=== PATIENT | female | born 1990 | race Caucasian/White ===

== ENCOUNTER 2016-07-23 14:07 | Inpatient (IN) | payer BC ==
[~2016-07-23] VITALS: Ht 175.3 cm; Wt 88.5 kg
--- NOTE | 2016-07-23 14:15 | NUR ---
PT BIB RA S/P OD ON 20 EACH OF KLONOPIN, ATIVAN, AND EXCEDRIN TODAY WITH SUICIDAL INTENT. RESP EVEN UNLABORED. SKIN WARM NONDIAPHORETIC. NO NEURO DEFICITS NOTED. A/OX4. VSS. IN ER BED 10 ON MONITOR.
--- NOTE | 2016-07-23 14:45 | NUR ---
ASKED NURSING COCOA BEAN ROASTER HELPER FOR TELEMETRY BED
[2016-07-23 14:54] LABS: BASOPHILS % (AUTO) 0.6 % (0.0-2.0); EOSINOPHILS # (AUTO) 0.1 /CMM (0.0-0.7); EOSINOPHILS % (AUTO) 1.4 % (0.0-6.0); HEMATOCRIT 36 % (33-45); HEMOGLOBIN 11.4 g/dL (11.5-14.8); LYMPHOCYTES # (AUTO) 1.4 /CMM (0.8-4.8); LYMPHOCYTES % (AUTO) 22.9 % (20.0-44.0); MEAN CORPUSCULAR HEMOGLOBIN 22 PG (26.0-33.0); MEAN CORPUSCULAR HGB CONC 32 g/dl (31.0-36.0); MEAN CORPUSCULAR VOLUME 70 fL (82-100); MONOCYTES # (AUTO) 0.6 /CMM (0.1-1.30); MONOCYTES % (AUTO) 9.2 % (2.0-12.0); NEUTROPHILS # (AUTO) 4.1 /CMM (1.8-8.9); NEUTROPHILS % (AUTO) 65.9 % (43.0-81.0); PLATELET COUNT (AUTO) 392 /CMM (150-450); RDW COEFFICIENT OF VARIATION 17.3 (11.5-15.0); RED BLOOD CELL COUNT(AUTO) 5.09 MIL/uL (4.0-5.2); WHITE BLOOD COUNT (AUTO) 6.2 K/uL (4.3-11.0)
--- NOTE | 2016-07-23 14:54 | NUR ---
UNABLE TO OBTAIN IV ACCESS AFTER MULTIPLE ATTEMPTS. NASH AT BEDSIDE FOR IV ACCESS.
[2016-07-23 15:09] LABS: CALCIUM, SERUM 8.8 mg/dL (8.5-10.1); CARBON DIOXIDE 27 mmol/L (21-32); CHLORIDE 107 mmol/L (98-107); CREATININE 0.6 mg/dL (0.6-1.3); GLUCOSE 77 mg/dL (74-106); SODIUM SERUM 143 mmol/L (136-145); UREA NITROGEN, BLOOD 11 mg/dL (7-18)
[2016-07-23 15:13] LABS: ACETAMINOPHEN 0 ug/ml (10-30); ALANINE AMINOTRANSFERASE 17 U/L (12-78); ALBUMIN 3.3 g/dL (3.4-5.0); ALCOHOL, BLOOD < 3 mg/dL (0-0); ALKALINE PHOSPHATASE 57 U/L (46-116); ASPARTATE AMINOTRANSFERASE 10 U/L (15-37); BILIRUBIN,DIRECT 0.1 mg/dL (0.0-0.2); BILIRUBIN,TOTAL 0.2 mg/dL (0.2-1.0); SALICYLATE 1.2 mg/dL (2.8-20.0); TOTAL PROTEIN, SERUM 6.9 g/dL (6.4-8.2)
[2016-07-23] MEDS ORDERED: ARIP15TA2 PO (15:19)
[2016-07-23] MEDS ORDERED: BUSP10TA35 PO (15:19)
[2016-07-23] MEDS ORDERED: ZOLP10TA6 PO (15:19)
[2016-07-23] MEDS ORDERED: CLON1TAB4 PO (15:19)
[2016-07-23] MEDS ORDERED: DESV50TA PO (15:19)
[2016-07-23] MEDS ORDERED: AMPH30CA3 PO (15:19)
[2016-07-23] MEDS ORDERED: LORA0.5T PO (15:19)
[2016-07-23] MEDS ORDERED: DILT30TA2 PO (15:19)
[2016-07-23] MEDS ORDERED: AMPH30TA3 PO (15:19)
--- NOTE | 2016-07-23 15:41 | NUR ---
PAGED DR ALONSO CRIMINAL JUSTICE INSTRUCTOR FOR PANEL
--- NOTE | 2016-07-23 15:59 | NUR ---
ADMITTING DR GAVIN IZAGUIRRE AT BEDSIDE
--- NOTE | 2016-07-23 16:23 | NUR ---
RESTING QUIETLY, NAD NOTED. REMAINS ALERT AND ORIENTED, NO NEURO DEFICITS. ALL NEEDS ATTENDED TO.
[2016-07-23] MEDS ORDERED: IV NS 0.9% 1,000 ML IV PRN (16:26)
[2016-07-23] MEDS ORDERED: ACETAMINOPHEN 325 MG TABLET PO PRN (16:30)
[2016-07-23] MEDS ORDERED: HYDROCODONE/APAP 5/325MG 1 EACH TABLET PO PRN (16:30)
[2016-07-23] MEDS ORDERED: ZOLPIDEM TARTRATE 5 MG TABLET PO PRN (16:30)
[2016-07-23] MEDS ORDERED: MAGNESIUM HYDROXIDE 30 ML UDC PO PRN (16:30)
[2016-07-23] MEDS ORDERED: Z GUARD REMEDY 2 OZ OINT TP PRN (16:30)
[2016-07-23] MEDS ORDERED: MAG HYDROX/AL HYDROX/SIMETH 30 ML UDC PO PRN (16:30)
[2016-07-23] MEDS ORDERED: ONDANSETRON HCL/PF 4 MG/2 ML VIAL IVP PRN (16:30)
--- NOTE | 2016-07-23 16:35 | NUR ---
318-1 TELE, PATIENT CANNOT GO UP UNTIL SITTER IS SENT DOWNSTAIRS PER NURSING MACERATOR OPERATOR
--- NOTE | 2016-07-23 16:42 | NUR ---
REPORT GIVEN TO CASHIER ASSISTANT FOR ADMISSION. PT STATES SHE CANNOT PROVIDE A URINE SAMPLE AT THIS TIME
--- NOTE | 2016-07-23 17:37 | NUR ---
PT CONTINUES TO REFUSE URINE SAMPLE. 1:1 SITTER NOW AT BEDSIDE.
--- NOTE | 2016-07-23 17:40 | NUR ---
OK PER MD TO ENDORSE URINE SAMPLE TO FLOOR
--- NOTE | 2016-07-23 17:59 | NUR ---
PT TRANSPORTED TO [facility] IN STABLE CONDITION. VSS.
--- NOTE | 2016-07-23 18:03 | NUR ---
RETAIL SALES MANAGER NOTES RECEIVED PT. FROM ER NURSE IN STABLE CONDITION. PT. IS REQUESTING TO BE IN A ROOM BY HERSELF OR SHE WILL LEAVE AMA. JERRY THE CHARGE NURSE WAS MADE AWARE. DR. ALONSO WAS CALLED AND STATES "PT. CAN NOT LEAVE WITHOUT A CRISIS EVALUATION". HAYLEE CALLED THE CRISIS TEAM AND STATES THAT THEY WILL COME AND ASSESS PT. WILL AWAIT FOR FURTHER ORDERS FROM THE MD
[2016-07-23] MEDS ORDERED: IV SET PRIMARY PUMP SET 1 EA INFUS.SET MC ONE (18:05)
--- NOTE | 2016-07-23 18:15 | NUR ---
DEPUTY GENERAL COUNSEL NOTES PT. IS AGREEING TO HOSPITALIZATION AT THIS TIME. WILL BEGIN ADMISSION PROCESS.
[2016-07-23] MEDS: PANTOPRAZOLE 40 MG VIAL IV SCH (18:32)
--- NOTE | 2016-07-23 19:25 | NUR ---
TELE/CELLULAR TOWER CLIMBER; RECEIVED PT IN BED AWAKE, ALERT AND ORIENTED X 4. PT WITH CRUSHER AND BINDER OPERATOR ON. WITH IVF OF NS AT 75 ML / HOUR ON PROGRESS. IV LINE ON LT HAND PATENT AND INTACT. BED ON LOWER POSITION AND LOCKED FOR SAFETY. UPPER PART OF BED SIDE ARE UP FOR SAFETY. PT ON HER OWN CLOTHES AND REFUSED TO WEAR HOSPITAL GOWN. DENIES PAIN. WITH SITTER AT THE BED SIDE FROM DAY SHIT AT THIS TIME. PER DAY SHIFT RN PT HAS TO BE ADMITTED . SHE CAME FROM ER VIA GURNEY AT 1800 HOURS. PT SAID I AM COLD WITH BLANKETS ON. I TOLD THE PT I WILL ADJUST THE ROOM THERMOSTAT, DONE. PT ASKING FOR HOT DINNER. I OFFERED SANDWICH BUT REFUSED AND SAID I ATE SANDWICH ALREADY. SHE SAID FURTHER I NEED HOT SANDEEP/ DINNER.
--- NOTE | 2016-07-23 19:30 | NUR ---
TELE/LEADERSHIP DEVELOPMENT MANAGER; I PLACED A CALL TO THE KITCHEN AND SPOKE TO A MALE KITCHEN STAFF ABOUT DIET , PT NEEDS HOT FOOD FOR DINNER. HE CAME BROUGHT TUNA SANDWICH. PT REFUSED THE SANDWICH.
--- NOTE | 2016-07-23 19:43 | NUR ---
MOTORCYCLE ASSEMBLER CLOSING NOTES PT. IN STABLE CONDITION. ALL NEEDS MET AND ORDERS CARRIED OUT ACCORDINGLY. WILL ENDORSE TO NIGHTSHIFT NURSE FOR EDISON AND COMPLETION OF ADMISSION PROCESS
--- NOTE | 2016-07-23 19:45 | NUR ---
TELE/MARKETING SYSTEMS MANAGER; I INFORMED AYAAN EDWARDS BOTH CN AND TH NEWS ANALYST INNA REGARDING PT DEMAND OF HOT FOOD AND PT SAID SHE GO HOME IF SHE DOES NOT GET THE HOT FOOD. ALSO PT DEMANDS FOR AMBIEN.
--- NOTE | 2016-07-23 19:45 | NUR ---
TELE/LEAD FABRICATOR; CORRECTION PT WAS EVALUATED BY INNA , CRISIS TEAM ; NOT FRAME ASSEMBLER.
--- NOTE | 2016-07-23 19:50 | NUR ---
TELE/ATHLETIC COACH; LUIS EDUARDO KEITH TALKED TO THE CN , JERRY AND AYAAN REGARDING THE PT. THE INNA HOFF SAID PT IS NOT ON HOLD AT THIS TIME. AND THEN LATER LUIS EDUARDO KEITH SAID SHE WILL PUT PT ON HOLD. LUIS EDUARDO KEITH TAALKED TO THE PT.
--- NOTE | 2016-07-23 19:55 | NUR ---
TELE/SENIOR GRADUATE ADVISOR; PT TOLD ME SHE TAKES AMBIEN 10 MG AT NIGHT AT HOME . SHE DOES NOT WANT AMBIEN 5 MG.
--- NOTE | 2016-07-23 20:00 | NUR ---
TELE/DELIVERER PHARMACY; PT ON SR 86 AT THIS TIME.
--- NOTE | 2016-07-23 20:10 | NUR ---
TELE/MARKETING DATABASE COORDINATOR; I PLACED A CALL TO DR. Ania SALGADO REGARDING PT REQUEST FOR AMBIEN 10 MG NOT 5 MG . AWAITING.
--- NOTE | 2016-07-23 20:15 | NUR ---
TELE/ROAD FREIGHT BRAKE COUPLER; DR. Ania SALGADO CALLED BACK AND I NOTIFIED HIM REGARDING PT CONDITION AND WANTS AMBIEN [address] Ania SALGADO WITH ORDER OF AMBIEN 10 MG PO HS PRN. CARRIED OUT. AND CHARGE NURSE AYAAN INFORMED.
--- NOTE | 2016-07-23 20:20 | NUR ---
TELE/WIRE BRUSH OPERATOR; NOTED PT. REMOVED HER IV AND TELEMETRY. HE WANTS TO GO HOME . SHE SAID FURTHER NO ONE WILL TAKE CARE OF MY DOG AND I AM FINE. I NOTIFIED STEFANI KUO . PT IS ALREADY ON HOLD. PAGED THE SECURITY AND THE CAME AND DID TRIED TO EXPLAIN TO THE PT. PT STILL INSIST TO GO HOME. AND THEN THE PT WENT TO THE ELEVATOR. ANOTHER SECURITY CAME. THE LATER PT WENT TO THR ROOM AND SITTING ON THE CHAIR HOLDING HER PURSE.
--- NOTE | 2016-07-23 20:25 | NUR ---
TELE/GUYLINE OPERATOR; PER STEFANI KUO SAID TO CALL DR. Ania SALGADO AGAIN AND GET AN ORDER FOR PSYCHE CONSULT AND RESTRAINT ORDER.
[2016-07-23] MEDS ORDERED: ZOLPIDEM TARTRATE 10 MG TABLET PO PRN (20:30)
--- NOTE | 2016-07-23 20:30 | NUR ---
TELE/MATERIAL REPROCESSING ASSOCIATE; DR. Ania SALGADO CALLED BACK I NOTIFIED HIM THAT THIS PT IS NOW PUT ON HOLD PER LUIS EDUARDO KEITH. I TOLD HIM THAT PER STEFANI KUO PT NEEDS PSYCHE CONSULT AND RESTRAINT ORDER. LUIS EDUARDO KEITH SPOKE TO DR. Ania SALGADO ALSO AT THIS TIME. NURSING SALES PORTER, CARITO TALKED TO THE PT WITH THE SECURITYBY THE PT ROOM DOOR. PT AT THIS TIME WAS STANDING HOLDING HER PURSE.
--- NOTE | 2016-07-23 20:40 | NUR ---
TELE/MOUNT LOADER; PT BACK TO HER BED. WITH SECURITY . PT ALSO INSISTED FOR HOT DINNER. SO NURSING COOK CHIEF SAID SHE WILL ORDER PIZZA FOR THE PT.
[2016-07-23] MEDS ORDERED: HALOPERIDOL LACTATE INJ 5 MG/ML VIAL IM PRN (21:00)
[2016-07-23] MEDS ORDERED: diphenhydrAMINE HCL 50 MG/ML VIAL IM PRN (21:00)
--- NOTE | 2016-07-23 21:00 | NUR ---
TELE/ELECTROMAGNET CRANE OPERATOR; PER CHARGE NURSE , AYAAN SAID DR. GARDNER FOR PSYCHE CONSULT CALLED WITH ORDERS AND SHE WILL COME TOMORROW.
--- NOTE | 2016-07-23 21:00 | NUR ---
TELE/INSIDE SALES COORDINATOR; PT IN BED AT THIS TIME AND I ASKED HER IF SHE WOULD LIKE TO WEAR HOSPITAL GOWN AND SHE AGREED.SO HELP HER PUT THE HOSPITAL GOWN. I ASKED THE PT IF OK TO PUT A NEW IV LINE AND SHE SAID YES. I ASKED THE PT ALSO IF SHE WOULD LIKE TO GO TO THE BATHROOM FIRST BEFORE I WILL AN IV LINE AND SHE SAID NO SHE SAID I VOIDED ALREADY.
--- NOTE | 2016-07-23 21:05 | NUR ---
TELE/NURSING SECRETARY; I PLACED BACK ALSO THE LAST SAWYER. NEW IV LINE I INSERTED TO HER RWA # 20 ANGIO CATH. IVF RESUMED.
[2016-07-23] MEDS ORDERED: diphenhydrAMINE HCL 50 MG/ML VIAL ONE (21:10)
[2016-07-23] MEDS ORDERED: HALOPERIDOL LACTATE INJ 5 MG/ML VIAL ONE (21:11)
[2016-07-23] MEDS ORDERED: ZOLPIDEM TARTRATE 10 MG TABLET ONE (21:15)
--- NOTE | 2016-07-23 21:30 | NUR ---
TELE/MODEL PHOTOGRAPHERS'; PT. WAS MOVED TO ROOM 329 VIA BED PER STEFANI KUO. NURSING GEOPHYSICAL DATA TECHNICIAN BROUGHT JI TO THE PT. PT CALM AT THIS TIME IN BED. SHE WAS THANKFUL FOR THE JI. PT ASKING FOR SLEEPING PILL.
[2016-07-23 21:35] VITALS: BP 128/73
--- NOTE | 2016-07-23 21:40 | NUR ---
TELE/PROGRAM DIRECTOR SCOUTING; AMBIEN 10 MG 1 TAB. PO HS PRN ORDERED GIVEN AT 2138 . PT ALSO STILL EATING HER PIZZA. ORANGE JUICE AND CRANBERRY JUICE GIVEN .
--- NOTE | 2016-07-23 21:50 | NUR ---
TELE/GREASE MAKER HEAD; PT WANTS THE LIGHTS OFF AND SHE SHE WANTS TO SLEEP.
--- NOTE | 2016-07-23 22:00 | NUR ---
TELE/BOTTOM SANDER; NOTED AT THIS TIME PT ON THE CELL PHONE TALKING TO A MALE PERSON.
--- NOTE | 2016-07-23 22:45 | NUR ---
TELE/COLLEGE PRESIDENT; AT THIS TIME PT IN BED ON HER LT SIDE SLEEPING QUIETLY. BREATHING NON LABORED AND EVEN. IVF ON PROGRESS.
--- NOTE | 2016-07-23 22:55 | NUR ---
TELE/EVENT DECORATOR; CHARGE NURSE , AYAAN LLAMAS CHECKED THE PT.
--- NOTE | 2016-07-23 23:30 | NUR ---
TELE/PROPERTY MANAGER; PT AT THIS TIME IN BED SLEEPING. BREATHING NON LABORED. IVF ON PROGRESS.
--- NOTE | 2016-07-24 | NUR ---
TELE/DIE TRIMMER; SLEEPING. REFUSED VITAL SIGNS.
--- NOTE | 2016-07-24 02:00 | NUR ---
TELE/WEIGHT CLERK; SLEEPING AT THIS TIME IN BED. BREATHING NON LABORED AND EVEN. IVF ON PROGRESS INFUSING FINE.
--- NOTE | 2016-07-24 03:00 | NUR ---
TELE/CAPTAIN ROOM SERVICE; ASLEEP. BREATHING NON LABORED AND EVEN. IVF STILL INFUSING. CONTINUE TO MONITOR. SITTER PRESENT AT ALL TIMES IN THE ROOM.
--- NOTE | 2016-07-24 04:55 | NUR ---
TELE/SHOP COORDINATOR; I CALLED SPOKE TO PATTI RUIZ. TECH I INFORMED HIM URINE SPECIMEN READY TO BE PICKED UP; IT IS IN THE FRIDGE.
--- NOTE | 2016-07-24 05:10 | NUR ---
TELE/COMMODITY SPECIALIST; PT SLEEPING. BREATHING NON LABORED. IVF ON PROGRESS. ON SR 72. SITTER PRESENT. WILL CONTINUE TO MONITOR.
--- NOTE | 2016-07-24 06:03 | NUR ---
TELE / ONLINE TRADER; PT ON SR 67. PT SLEPT AT GOOD QUIET INTERVALS. VOIDED TO THE BATHROOM 700 ML CLEAR YELLOW URINE PER MANAGER SPA. WILL CONTINUE TO MONITOR. SLEEPING AT THIS TIME. SITTER PRESENT AT ALL TIMES.
[2016-07-24 06:30] VITALS: BP 122/65
--- NOTE | 2016-07-24 06:38 | NUR ---
TELE/BANQUET CHEF; AWAKEN VITAL SIGNS TAKEN AND RECORDED. DENIES PAIN. PT WAS ASKING IF THE DOCTOR IS HERE I TOLD HER NO BUT THE DOCTOR IS COMING. PT WAS SAYING I HAVE TO GET OUT HERE IN 15 MINUTES. I TOLD THE PT NO. WAIT FOR THE DOCTOR. THEN PT WENT BACK TO SLEEP . SITTER PRESENT . IVF ON PROGRESS. CONSTRUCTION OR LEAK GANG LABORER IS STILL ON WITH THE PT. WILL CONTINUE TO MONITOR. WILL ENDORSE TO THE DAY SHIFT NURSE FOR [place].
--- NOTE | 2016-07-24 06:48 | NUR ---
TELE/PRESIDENT AND CHIEF OPERATING OFFICER; BILATERAL SOFT WRIST RESTRAINT HAS ORDERED LAST NIGHT NOT BEEN APPLIED PT BADLY REFUSED. PT ABLE TO CALM DOWN AND BEHAVE FOLLOWS COMMAND.
--- NOTE | 2016-07-24 07:40 | NUR ---
BUSINESS CONTINUITY CONSULTANT MS NOTES RECEIVED PATIENT IN BED, AWAKE, A/O X, VERBALLY RESPONSIVE. NO APPARENT DISTRESS NOTED, DENIES PAIN DENIES SOB. PATIENT ON 5150 HOLD DUE TO ATTEMPTED SUICIDE, SITTER IS AT BED SIDE. PATIENT IS COOPERATING, BUT STATES SHE WILL LEAVE. SHE SATS SHE CANNOT STAY, SHE SATES SHE WILL LEAVE AND SAID IF WE DONT LET HER LEAVE WE WILL HAVE TO CALL THE TWISTING FRAME FIXER. EXPLAINED TO HER THAT SHE IS ON A HOLD AND THAT WE ANT LET HER LEAVE. PATIENT STATED SHE DOES NOT CARE. ALL NEEDS MET, KEPT COMFORTABLE, SAFETY CHECKS IN PLACE, WILL CONTINUE TO MONITOR.
[2016-07-24 08:06] LABS: BASOPHILS % (AUTO) 0.4 % (0.0-2.0); EOSINOPHILS # (AUTO) 0.1 /CMM (0.0-0.7); EOSINOPHILS % (AUTO) 1.8 % (0.0-6.0); HEMATOCRIT 33 % (33-45); HEMOGLOBIN 10.8 g/dL (11.5-14.8); LYMPHOCYTES # (AUTO) 1.6 /CMM (0.8-4.8); LYMPHOCYTES % (AUTO) 28.1 % (20.0-44.0); MEAN CORPUSCULAR HEMOGLOBIN 23 PG (26.0-33.0); MEAN CORPUSCULAR HGB CONC 33 g/dl (31.0-36.0); MEAN CORPUSCULAR VOLUME 69 fL (82-100); MONOCYTES # (AUTO) 0.4 /CMM (0.1-1.30); MONOCYTES % (AUTO) 6.5 % (2.0-12.0); NEUTROPHILS # (AUTO) 3.5 /CMM (1.8-8.9); NEUTROPHILS % (AUTO) 63.2 % (43.0-81.0); PLATELET COUNT (AUTO) 374 /CMM (150-450); RDW COEFFICIENT OF VARIATION 18.3 (11.5-15.0); RED BLOOD CELL COUNT(AUTO) 4.72 MIL/uL (4.0-5.2); WHITE BLOOD COUNT (AUTO) 5.6 K/uL (4.3-11.0)
[2016-07-24 08:27] LABS: MAGNESIUM 1.7 mg/dL (1.8-2.4); PHOSPHORUS 4.5 mg/dL (2.5-4.9)
--- NOTE | 2016-07-24 08:27 | NUR ---
BONI faxed referral documents to Intake at [facility] for psychiatric hospitalization since pt. is on a 5150 hold.
[2016-07-24 08:30] LABS: THYROID STIMULATING HORMONE 0.65 uIU/mL (0.358-3.74)
[2016-07-24 08:54] LABS: LYMPHOCYTES % (MANUAL) 27 % (16-48); MONOCYTES % (MANUAL) 6 % (0-11.0); NEUTROPHILS % (MANUAL) 67 (42-76)
--- NOTE | 2016-07-24 09:58 | NUR ---
BONI called [facility] intake department and spoke to Cole who informed BONI he did receive BONI's fax and they are reviewing the case and will contact BONI shortly.
[2016-07-24] MEDS: PANTOPRAZOLE 40 MG VIAL IV SCH (10:19)
--- NOTE | 2016-07-24 10:25 | NUR ---
BONI met with pt. bedside to get contact information for her landlord since pt. has a dog and will not be able to return home since she placed on a 5150. Pt. got agitated and refused to give SW the contact information stating it will make matters worse. BONI informed pt. about the animal skilled nursing program that will be able to hold her pet for 30 days. Pt. still refused to give SW the contact information and became very agitated and stated, she is going to leave the hospital now and started getting out of bed. BONI called the RN and informed dry pan charger Diane regarding pt. wanting to leave [place]. ROSEMARY Garcia informed BONI that pt. requested to be sedated and gave SW the contact information to her mother and her department supervisor Gregoria . Her mother Lali's contact information is [phone] and her landlord is Mehnaz Payne at [employer] [facility] [place]. Pt. did not have the contact number for her. BONI to google the information for [employer].
--- NOTE | 2016-07-24 10:30 | NUR ---
ASSOCIATE STORE MANAGER NOTES PATIENT STATED SHE WAS GOING TO LEAVE, EXPLAINED THAT SHE IS ON A HOLD AND WE COULD NOT LET HER GO. SECURITY CAME UP, WE SPOKE TO THE PATIENT. HALDOL AND BENADRYL IM WERE GIVEN, TO CALM PATIENT DOWN. WILL CONTINUE TO MONITOR.
--- NOTE | 2016-07-24 10:44 | NUR ---
BONI contacted pt's mother Lali and left her a voicemail message requesting a call back. Addendum: 07/24/16 at 1105 by ZULEYMA PLATA BONI contacted pt's landlord Mehnaz Payne and informed her that pt. gave SW her information to contact her regarding her pet at home. Mehnaz informed BONI that she is not able to speak with SW and pt. needs to call her herself. BONI called MARLEEN Kalpana and informed her regarding the aforementioned information.
--- NOTE | 2016-07-24 12:26 | NUR ---
BONI received a call from Cole at [facility] informing SW that they have a bed available and accepting doctor is Dr. Hernandez. Cole requested for nurse to nurse report to be called to x [phone]. Pt. will be a direct admit to the hospital and will be in [facility]. BONI contacted pt's RN Radha and gave her the above information.
[2016-07-24] MEDS ORDERED: MAGNESIUM OXIDE 400 MG TABLET PO ONE (13:30)
--- NOTE | 2016-07-24 15:40 | NUR ---
MS RN NOTES PATIENT TRANSFERRED TO [facility] FOR FURTHER TREATMENT. PATIENT IN STABLE CONDITION. AWARE OF ALL ABNORMAL LABS. ALL DUE MEDICATIONS GIVEN. REPORT GIVEN TO NAZIA RILEY AT [facility]. IV REMOVED WITH MINIMAL BLEEDING. ID BAND REMOVED. ALL BELONGINGS ACCOUNTED FOR. BELONGING LIST SIGNED. DISCHARGE INSTRUCTING PROVIDED. DISCHARGE PROTOCOL FOLLOWED. TRANSFERRED VIA EMT.
== END 2016-07-24 15:56 | DRG 918 ==
LOC: ER 14:10 → TELE 16:38 → MED 07-24 09:58
PROVIDERS: ADMIT Internal Medicine; ATTEND Internal Medicine
DX: T42.4X2A Poisoning by benzodiazepines, intentional self-harm, initial encounter (principal); I47.1 Supraventricular tachycardia; Y92.89 Other specified places as the place of occurrence of the external cause; Z91.5 Personal history of self-harm; Z59.9 Problem related to housing and economic circumstances, unspecified; F32.9 Major depressive disorder, single episode, unspecified; F41.9 Anxiety disorder, unspecified; F12.90 Cannabis use, unspecified, uncomplicated; T39.1X1A Poisoning by 4-Aminophenol derivatives, accidental (unintentional), initial encounter
CPT/HCPCS: 36415; 80048-TC; 80061-TC; 80076-TC; 80305; 83735-TC; 84100-TC; 84443-TC; 85025-TC; 87081-TC; A4606; C9113; G0480; J1200; J1630; J7030; Z7610